=== PATIENT | female | born 1955 | race Caucasian/White ===

== ENCOUNTER 2016-09-15 08:44 | Outpatient (CLI) | payer BC, OTHER | END 2016-09-15 12:40 | disposition home or self-care (01) | LOC: LDOP 08:44 | PROVIDERS: ATTEND Obstetrics & Gynecology | DX: O46.93 Antepartum hemorrhage, unspecified, third trimester (principal); O26.853 Spotting complicating pregnancy, third trimester | CPT/HCPCS: 59025; 76819; 99211; G0463 ==

== ENCOUNTER 2016-10-15 19:01 | Emergency (ER) | payer BC ==
[~2016-10-15] VITALS: Ht 152.4 cm; Wt 64.5 kg
[~2016-10-15 19:01] MED LIST: ASPI-496 PO; IBUP-1222 PO; LABE200T3 PO; LABE300T PO; LEVO112T2 PO; OMEG-76 PO; OXYC-302 PO
[2016-10-15 19:10] VITALS: BP 169/85
[2016-10-15] MEDS ORDERED: SODIUM CHLORIDE 0.9% 1,000 ML IV ONE (19:18)
[2016-10-15] MEDS ORDERED: SODIUM CHLORIDE FLUSH 10ML SYR IVF ONE (19:30)
[2016-10-15 20:02] LABS: ASPARTATE AMINO TRANSFERASE 32 U/L (15-37); BLOOD UREA NITROGEN 18 mg/dL (7-18)
== END 2016-10-15 21:05 | disposition left against medical advice (07) ==
LOC: ED 20:59
DX: Z53.21 Procedure and treatment not carried out due to patient leaving prior to being seen by health care provider (principal)
CPT/HCPCS: 36415; 80053; 85025